=== PATIENT | female | born 1965 ===

== ENCOUNTER 2021-12-08 06:17 | Day surgery (SDC) | payer OTHER ==
[~2021-12-08 06:17] MED LIST: LEVOTHYROXINE25 MCG PO; METFORMIN HCL500 M3 PO; ZOCOR20 MG PO
[2021-12-08] MEDS ORDERED: NAPR500T14 PO (11:16)
[2021-12-08] MEDS ORDERED: MORGIDOX100 MG PO (11:16)
== END 2021-12-08 17:20 | disposition home or self-care (01) ==
LOC: CIR.AMB 06:17
PROVIDERS: ATTEND Obstetrics & Gynecology
DX: N72 Inflammatory disease of cervix uteri (principal); N84.0 Polyp of corpus uteri; E03.9 Hypothyroidism, unspecified; E11.9 Type 2 diabetes mellitus without complications; E78.00 Pure hypercholesterolemia, unspecified; Z79.84 Long term (current) use of oral hypoglycemic drugs